=== PATIENT | female | born 2000 | race Caucasian/White ===

== ENCOUNTER 2021-11-20 16:45 | Emergency (ER) | payer OTHER ==
[~2021-11-20] VITALS: Ht 167.6 cm; Wt 78.9 kg
[2021-11-20 17:07] VITALS: BP 143/86
[2021-11-20 18:10] LABS: BASOPHILS # (AUTO) 0.1 K/uL (0.00-0.22); BASOPHILS % (AUTO) 0.8 % (0.0-2.0); EOSINOPHILS # (AUTO) 0.1 K/uL (0-0.4); EOSINOPHILS % (AUTO) 0.4 % (0.0-4.0); HEMATOCRIT 43.6 % (36-48); HEMOGLOBIN 14.5 g/dL (12.0-16.0); LYMPHOCYTES % (AUTO) 13.8 % (20.5-51.1); MEAN CORPUSCULAR HEMOGLOBIN 28 pg (27-31); MEAN CORPUSCULAR HGB CONC 33 g/dL (33-37); MEAN CORPUSCULAR VOLUME 83.1 fL (80-94); MONOCYTES % (AUTO) 7.3 % (1.7-9.3); NEUTROPHILS # (AUTO) 11.2 K/uL (1.8-7.7); NEUTROPHILS % (AUTO) 77.7 % (42.2-75.2); PLATELET COUNT (AUTO) 327 K/uL (140-450); RED BLOOD CELL COUNT(AUTO) 5.25 MIL/uL (4.20-5.40); RED CELL DISTRIBUTION WIDTH 13.2 % (11.6-13.7); WHITE BLOOD COUNT (AUTO) 14.4 K/uL (4.5-11.0)
--- NOTE | 2021-11-20 18:30 | NUR ---
Norma robison in EDM - 11/20/21 at 2002 by [facility] PATIENT ELOPED FROM FACILITY. DISCHARGE INSTRUCTIONS NOT GIVEN TO PATIENT. DR. PRADO NOTIFIED.
[2021-11-20 18:37] LABS: APPEARANCE,URINE CLEAR (CLEAR); BILIRUBIN,URINE NEGATIVE (NEGATIVE); BLOOD, URINE NEGATIVE (NEGATIVE); COLOR,URINE YELLOW (YELLOW); LEUKOCYTE ESTERASE ,URINE TRACE (NEGATIVE); NITRITE, URINE NEGATIVE (NEGATIVE); PH,URINE 7.5 (5.0-9.0); UGLUCOSE NEGATIVE (NEGATIVE)
[2021-11-20 18:39] LABS: ALBUMIN 4.1 g/dL (3.4-5.0); ANION GAP 15.1 (8-16); CHLORIDE 102 mmol/L (98-107); CREATININE 0.7 mg/dL (0.6-1.3); GFR ARICAN-AMERICAN 139 mL/min (>90); GLUCOSE 102 mg/dL (74-106); LIPASE 69 U/L (73-393); POTASSIUM 4.1 mmol/L (3.5-5.1); SODIUM SERUM 140 mmol/L (136-145); TOTAL BILIRUBIN 0.5 mg/dL (0.0-1.0); UREA NITROGEN, BLOOD 12 mg/dL (7-18)
[2021-11-20 19:13] LABS: RBC,URINE NONE SEEN /HPF (0-5)
[2021-11-20 19:14] LABS: TRICHOMONAS,URINE None Seen /HPF (None Seen); YEAST,URINE None Seen /HPF (None Seen)
[2021-11-20] MEDS ORDERED: KETOROLAC 15 MG/ML VIAL IM ONE (19:25)
[2021-11-20] MEDS ORDERED: KETOROLAC 15 MG/ML VIAL ONE (22:02)
[2021-11-20] MEDS ORDERED: CEPH-588 PO (22:53)
[2021-11-20] MEDS ORDERED: ONDA-188 SL (22:54)
[2021-11-20 23:31] VITALS: BP 143/86
--- NOTE | 2021-11-20 23:31 | NUR ---
Patient discharged with v/s stable. Written and verbal after care instructions given and explained. Patient alert, oriented and verbalized understanding of instructions. Ambulatory with steady gait. All questions addressed prior to discharge. ID band removed. Patient advised to follow up with PMD. Rx of KEFLEX AND ZOFRAN given. Patient educated on indication of medication including possible reaction and side effects. Opportunity to ask questions provided and answered.
[2021-11-24] MEDS ORDERED: ACET-1182 PO (09:47)
[2021-11-24] MEDS ORDERED: ACET-9525 PO (09:47)
== END 2021-11-20 23:31 | disposition home or self-care (01) ==
LOC: MED 16:45
DX: N39.0 Urinary tract infection, site not specified (principal); Z79.899 Other long term (current) drug therapy; Z79.2 Long term (current) use of antibiotics
CPT/HCPCS: 36415; 76705; 80053; 81001; 81025; 83690; 85025; 87086; 96372; 99284; J1885; Q0092

== ENCOUNTER 2021-12-01 09:49 | Emergency (ER) | payer OTHER ==
[~2021-12-01] VITALS: Ht 167.6 cm; Wt 79.4 kg
[~2021-12-01 09:49] MED LIST: ACET-1182 PO; ACET-9525 PO; ONDA-188 SL
--- NOTE | 2021-12-01 12:50 | NUR ---
ANIBAL VANG ATTEMPTED TO BRING PT BACK, NOT FOUND IN LOBBY/OUTSIDE
--- NOTE | 2021-12-01 13:45 | NUR ---
PT RETURNED, PT EVALUATED BY PA
--- NOTE | 2021-12-01 14:00 | NUR ---
PT DISCHARGED BY ANIBAL VANG.
== END 2021-12-01 14:00 | disposition home or self-care (01) ==
LOC: MED 09:49
DX: Z48.01 Encounter for change or removal of surgical wound dressing (principal); Z90.49 Acquired absence of other specified parts of digestive tract
CPT/HCPCS: 81002; 81025; 99282

== ENCOUNTER 2021-12-10 00:34 | Inpatient (IN) | payer OTHER ==
[~2021-12-10] VITALS: Ht 167.6 cm; Wt 73.5 kg
[2021-12-10 00:52] VITALS: BP 121/73
--- NOTE | 2021-12-10 00:58 | NUR ---
PT AMBULATED TO ED 11, REPORT GIVEN TO JAZMIN VELA, PT PROVIDED URINE SAMPLE.
--- NOTE | 2021-12-10 01:01 | NUR ---
Pt coming from home ambulatory with steady gait. Pt c/o fever, fatigue, and abdominal pain. Rates abdominal pain 10/10 non-radiating. Pt had Api surgery on November 22. Temp eleveated at 99.1 F and HR elevated at 130, other vitals stable. Pt is A&Ox4. Skin intact. Pt's skin pale. NKA. Bed in lowest position.
--- NOTE | 2021-12-10 01:05 | NUR ---
Dr. Rothman at bedside assessing pt.
--- NOTE | 2021-12-10 01:10 | NUR ---
22g IV placed on left AC using aseptic technique no infiltration noted. Blood drawn and sent to lab. Flushed IV with 10cc of NS.
--- NOTE | 2021-12-10 01:24 | NUR ---
Urine collected and sent to lab.
[2021-12-10] MEDS ORDERED: NACL 0.9% 2,000 ML IV ONE (01:25)
[2021-12-10] MEDS ORDERED: PIPERACILLIN/TAZOBACTAM 3.375 GM in DEXTROSE 5% 50 ML IV ONE (01:25)
[2021-12-10 01:29] LABS: BASOPHILS # (AUTO) 0.1 K/uL (0.00-0.22); BASOPHILS % (AUTO) 0.6 % (0.0-2.0); HEMATOCRIT 35.9 % (36-48); HEMOGLOBIN 12.2 g/dL (12.0-16.0); LYMPHOCYTES # (AUTO) 2.1 K/uL (2.5-16.5); LYMPHOCYTES % (AUTO) 12.6 % (20.5-51.1); MEAN CORPUSCULAR HEMOGLOBIN 28 pg (27-31); MEAN CORPUSCULAR HGB CONC 34 g/dL (33-37); MEAN CORPUSCULAR VOLUME 81.4 fL (80-94); MONOCYTES # (AUTO) 1.6 K/uL (0.8-1.0); MONOCYTES % (AUTO) 9.5 % (1.7-9.3); NEUTROPHILS # (AUTO) 13.2 K/uL (1.8-7.7); NEUTROPHILS % (AUTO) 77.3 % (42.2-75.2); PLATELET COUNT (AUTO) 429 K/uL (140-450); RED BLOOD CELL COUNT(AUTO) 4.41 MIL/uL (4.20-5.40); RED CELL DISTRIBUTION WIDTH 13.8 % (11.6-13.7)
--- NOTE | 2021-12-10 01:32 | NUR ---
Covid swab done and sent to lab.
[2021-12-10] MEDS ORDERED: PIPERACILLIN/TAZOBACTAM 3.375 GM VIAL IV ONE (01:35)
[2021-12-10 01:50] LABS: APPEARANCE,URINE CLEAR (CLEAR); BILIRUBIN,URINE NEGATIVE (NEGATIVE); BLOOD, URINE TRACE-I (NEGATIVE); COLOR,URINE YELLOW (YELLOW); LEUKOCYTE ESTERASE ,URINE TRACE (NEGATIVE); NITRITE, URINE NEGATIVE (NEGATIVE); UGLUCOSE NEGATIVE (NEGATIVE)
[2021-12-10 01:59] LABS: ALBUMIN 2.9 g/dL (3.4-5.0); ANION GAP 17.8 (8-16); CARBON DIOXIDE 23.9 mmol/L (21-32); CREATININE 0.8 mg/dL (0.6-1.3); POTASSIUM 3.7 mmol/L (3.5-5.1); TOTAL BILIRUBIN 0.8 mg/dL (0.0-1.0)
[2021-12-10 02:09] LABS: RBC,URINE 0-5 /HPF (0-5)
--- NOTE | 2021-12-10 02:36 | NUR ---
Pt to CT via wheelchair.
--- NOTE | 2021-12-10 02:41 | NUR ---
PT RETURNED FROM CT VIA W.C
[2021-12-10] MEDS ORDERED: MORPHINE SULFATE 4 MG/ML SYR IVP ONE (02:50)
--- NOTE | 2021-12-10 03:25 | NUR ---
Patient appears to be resting comfortably in bed. Vital Signs within normal limits. Respirations even and unlabored.
--- NOTE | 2021-12-10 05:57 | NUR ---
Personal Belonging List completed.
[2021-12-10] MEDS ORDERED: HYDROcodone/APAP 5/325 MG 1 TAB TAB PO PRN (07:15)
[2021-12-10] MEDS ORDERED: MORPHINE SULFATE 4 MG/ML SYR IVP PRN (07:15)
[2021-12-10] MEDS ORDERED: ACETAMINOPHEN 325 MG TAB PO PRN (07:15)
[2021-12-10] MEDS: NACL 0.9% 1,000 ML IV SCH ×2 (07:15→19:45)
[2021-12-10] MEDS ORDERED: MAGNESIUM OXIDE 400 MG TAB PO PRN (07:15)
[2021-12-10] MEDS ORDERED: POTASSIUM CHLORIDE 10 MEQ TABER PO PRN (07:15)
--- NOTE | 2021-12-10 08:00 | NUR ---
RECEIVED PT IN [facility] AOX4. C/O 05/05 ABDOMINAL PAIN AT THIS TIME BUT REFUSES PAIN MEDICATION. STACH ON MONITOR. IV INTACT AND PATENT INFUSING FLUIDS PER ORDER. PENDING MED SURG BED. NAD. SAFETY MAINTAINED
--- NOTE | 2021-12-10 09:00 | NUR ---
MEDICATED WITH HEPARIN SUBQ PER ORDER, UNABLE TO DOCUMENT ON EMAR
[2021-12-10] MEDS ORDERED: cefTRIAXone 1,000 MG VIAL ONE (09:48)
--- NOTE | 2021-12-10 11:14 | NUR ---
PT ASLEEP NO S/S PAIN OR DISCOMFORT. NAD. SAFETY MAINTAINED.
[2021-12-10] MEDS: metroNIDAZOLE 500 MG/NS PREMIX 100 ML IV SCH ×2 (13:00→20:59)
--- NOTE | 2021-12-10 16:46 | NUR ---
PT AMBULATES TO BATHROOM AND BACK TO [facility] NO CHANGES NOTED. SAFETY MAINTAINED
--- NOTE | 2021-12-10 17:59 | NUR ---
MOVED TO BED 7
--- NOTE | 2021-12-10 18:21 | NUR ---
PT RESTING IN [place] NO CHANGES NOTED. SAFETY MAINTAINED
--- NOTE | 2021-12-10 19:49 | NUR ---
Norma robison in [facility] - 12/10/21 at 1949 by CHRIS Report given to MIRIAN Donaldson for transfer of care.
--- NOTE | 2021-12-10 20:00 | NUR ---
REC'D PT FROM AM RN TO ASSUME PLAN OF CARE. PT'S A/OX4, DENIES PAIN, AMBULATORY WITH STEADY GAIT. STABLE VITAL SIGNS. POC DISCUSSED. WAITING FOR ROOM AVAILABILITY. M/S STATUS. PT ADMITTED FOR ABDOMINAL ABCESS. ON ATBX SAFETY CONTINUE. CONTINUE MONITOR.
[2021-12-11] MEDS: metroNIDAZOLE 500 MG/NS PREMIX 100 ML IV SCH ×3 (04:29→21:13)
--- NOTE | 2021-12-11 07:21 | NUR ---
ENDORSED PT TO RN MILY TO ASSUME PLAN OF CARE. A/OX4, BRP WITH STEADY GAIT, STABLE VITAL SIGNS. ON ROOM AIR SATS >95%
--- NOTE | 2021-12-11 07:22 | NUR ---
Recieved report from MIRIAN Donaldson for transfer of care
[2021-12-11 08:50] LABS: ANION GAP 16.4 (8-16); CARBON DIOXIDE 24.2 mmol/L (21-32); CREATININE 0.6 mg/dL (0.6-1.3); POTASSIUM 4.6 mmol/L (3.5-5.1)
[2021-12-11 09:03] LABS: BASOPHILS % (AUTO) 0.4 % (0.0-2.0); EOSINOPHILS # (AUTO) 0.2 K/uL (0-0.4); EOSINOPHILS % (AUTO) 2.3 % (0.0-4.0); HEMATOCRIT 31.3 % (36-48); HEMOGLOBIN 10.2 g/dL (12.0-16.0); LYMPHOCYTES # (AUTO) 2.1 K/uL (2.5-16.5); LYMPHOCYTES % (AUTO) 21.7 % (20.5-51.1); MEAN CORPUSCULAR HEMOGLOBIN 27 pg (27-31); MEAN CORPUSCULAR HGB CONC 33 g/dL (33-37); MEAN CORPUSCULAR VOLUME 83.6 fL (80-94); MONOCYTES # (AUTO) 1.1 K/uL (0.8-1.0); MONOCYTES % (AUTO) 11.3 % (1.7-9.3); NEUTROPHILS # (AUTO) 6.1 K/uL (1.8-7.7); NEUTROPHILS % (AUTO) 64.3 % (42.2-75.2); PLATELET COUNT (AUTO) 351 K/uL (140-450); RED BLOOD CELL COUNT(AUTO) 3.75 MIL/uL (4.20-5.40); RED CELL DISTRIBUTION WIDTH 13.6 % (11.6-13.7); WHITE BLOOD COUNT (AUTO) 9.5 K/uL (4.5-11.0)
[2021-12-11] MEDS ORDERED: cefTRIAXone 1,000 MG VIAL ONE (09:34)
[2021-12-11] MEDS: NACL 0.9% 1,000 ML IV SCH ×2 (09:34→20:45)
--- NOTE | 2021-12-11 09:44 | NUR ---
Dr. Colon, admitting doctor, evaluating patient at bedside.
--- NOTE | 2021-12-11 10:05 | NUR ---
Patient was offered a coloring book.
[2021-12-11 10:30] LABS: PROTHROMBIN TIME 10.8 secs (10.8-13.4)
--- NOTE | 2021-12-11 12:19 | NUR ---
Patient ambulated to restroom with steady gait.
--- NOTE | 2021-12-11 14:23 | NUR ---
Patient is laying in bed, respirations even and unlabored. All needs met by staff.
--- NOTE | 2021-12-11 16:18 | NUR ---
Paged Dr. Colon regarding patients diet orders. Recieved new orders for Regular Diet today and NPO after midnight. Orders carried out.
--- NOTE | 2021-12-11 16:21 | NUR ---
Patient was offered a sandwich and juice.
--- NOTE | 2021-12-11 18:16 | NUR ---
Patient was offered dinner tray.
--- NOTE | 2021-12-11 18:33 | NUR ---
Patient ambulated to restroom with steady gait.
--- NOTE | 2021-12-11 19:18 | NUR ---
Report given to JONAH Soliman for transfer of care.
--- NOTE | 2021-12-11 19:34 | NUR ---
Patient will be admitted to care of Dr. Colon. Admited to M/S. Will go to room 105B. Belongings list completed. Report to MIRIAN Mendez.
--- NOTE | 2021-12-11 19:35 | NUR ---
The patient's care was reviewed and supervised by Debra Jaramillo RN.
--- NOTE | 2021-12-11 22:51 | NUR ---
PATIENT AWAKE ALERT NO C/O OF ABDOMEN PAIN HAS SMALL DRSG AT LEFT LOWER QUAD SITE. DRY INTACT. PATIENT IS A MED/SURG PATIENT LUNGS CLEAR TEMP 98.8 PATIENT CAME HERE FROM [id number] [facility]. HUNG NS 80 HOUR. RECEIVED FLAGYL 500 MG IVPB. 2100. AND HEPARIN 5,000 UNITS S.Q. PATIENT NPO EXCEPT MEDS. HAD A APPY ON 11/22/21. PATIENT IS A M/S PATIENT. NO SIGNS OF DISTRESS.
[2021-12-12] VITALS: BP 108/77
[2021-12-12] MEDS: metroNIDAZOLE 500 MG/NS PREMIX 100 ML IV SCH ×3 (05:38→21:23)
[2021-12-12 07:15] LABS: BASOPHILS % (AUTO) 0.5 % (0.0-2.0); EOSINOPHILS # (AUTO) 0.3 K/uL (0-0.4); EOSINOPHILS % (AUTO) 3.8 % (0.0-4.0); HEMATOCRIT 31.3 % (36-48); HEMOGLOBIN 10.4 g/dL (12.0-16.0); LYMPHOCYTES # (AUTO) 2.6 K/uL (2.5-16.5); LYMPHOCYTES % (AUTO) 35.2 % (20.5-51.1); MEAN CORPUSCULAR HEMOGLOBIN 27 pg (27-31); MEAN CORPUSCULAR HGB CONC 33 g/dL (33-37); MEAN CORPUSCULAR VOLUME 82.5 fL (80-94); MONOCYTES # (AUTO) 0.9 K/uL (0.8-1.0); MONOCYTES % (AUTO) 11.7 % (1.7-9.3); NEUTROPHILS # (AUTO) 3.6 K/uL (1.8-7.7); NEUTROPHILS % (AUTO) 48.8 % (42.2-75.2); PLATELET COUNT (AUTO) 370 K/uL (140-450); RED CELL DISTRIBUTION WIDTH 13.9 % (11.6-13.7); WHITE BLOOD COUNT (AUTO) 7.3 K/uL (4.5-11.0)
[2021-12-12 07:38] LABS: ANION GAP 14.8 (8-16); CARBON DIOXIDE 25.7 mmol/L (21-32); CREATININE 0.7 mg/dL (0.6-1.3); POTASSIUM 3.5 mmol/L (3.5-5.1)
[2021-12-12 08:00] VITALS: BP 102/68
--- NOTE | 2021-12-12 08:00 | NUR ---
ASSESSMENT COMPLETED PLAN OF CARE REVIEWED NPO FOR PROCEDURE NO DISTRESS NOTED
[2021-12-12] MEDS: NACL 0.9% 1,000 ML IV SCH ×2 (09:18→21:45)
[2021-12-12] MEDS ORDERED: MIDAZOLAM 2 MG/2 ML VIAL ONE (10:02)
[2021-12-12] MEDS ORDERED: LIDOCAINE 1% 500 MG/50 ML VIAL ONE (10:03)
[2021-12-12] MEDS ORDERED: fentaNYL citrate 0.05 MG/ML VIAL ONE (10:03)
--- NOTE | 2021-12-12 11:07 | NUR ---
PATIENT HAS BEEN SCREENED AND CATEGORIZED LOW NUTRITION RISK. PATIENT WILL BE SEEN WITHIN 7 DAYS OF ADMISSION. 12/17/[address] REVIEWED BY ROHAN LONG RD
--- NOTE | 2021-12-12 14:30 | NUR ---
DC PLANNING SW MET WITH PT AT BEDSIDE TO COMPLETE ASSESSMENT. PTS BOYFRIEND, JESSIKA AT BEDSIDE,PT PROVIDED PERMISSION FOR PARTNER TO STAY IN ROOM. PATIENT IS PRIMARILY WOLOF SPEAKING, SW TO UTILIZE VALIDATION SPECIALIST HOWEVER, PT REQUESTED THAT HER PARTNER, INTERPRET INSTEAD. PATIENT REPORTS RESIDING IN A SINGLE STORY HOME WITH HER FAMILY AT THE ADDRESS LISTED ON FILE. PATIENT IDENTIFIED RADHA MELISSA, BROTHER, EMERGENCY CONTACT. PATIENT REPORTS MEETING WITH PCP NEEDED, LAST VISIT; . SW SPOKE TO PT ABOUT THE IMPORTANCE OF F/UP CARE. PATIENT RECEPTIVE AND PROVIDED SW WITH PERMISSION TO SCHEDULE FOLLOW UP APPT, WHEN CLEARED FOR DC. PATIENT DENIES TAKING MEDICATION AT THIS TIME AND DENIES BARRIERS IN ACCESS TO MEDICATION, IF REQUIRED. PATIENT REPORTS RECEIVING MEDICATION FROM [facility] [place], WHEN NEEDED. PATIENT REPORTS BEING INDEPENDENT IN ALL ACTIVITIES AND DENIES USE OF DME. PATIENT REPORTS ADEQUATE FOOD SOURCES AT HOME. PATIENT REPORTS ADEQUATE FRIEND AND FAMILY SUPPORT. PT DENIES MH/SA HX. PATIENT REPORTS DC PLAN IS TO RETURN HOME, WITH FAMILY PROVIDING TRANSPORTATION WHEN MEDICALLY STABLE Addendum: 12/13/21 at 1540 by Juan Diego VENTURA BOB OUTREACHED TO PATIENTS PCP OFFICE AT [phone]. SPOKE WITH DONITA, WHO REPORTS THAT HOSPITAL DC APPTS ARE ONLY DONE ON STANDBY. PATIENT MUST ARRIVE TO OFFICE AT 1:30 AND WILL BE CALLED FROM 1:30-4:30PM DEPENDING ON CANCELLATIONS. STANDBY AP[facility] [place] EXPLAINED STANDBY TO PATIENT. APPT DETAILS PROVIDED TO PATIENT AND PARTNER THAT INCLUDED; DATE, TIME, ADDRESS, PHONE NUMBER. PATIENT ACCEPTED.
[2021-12-12 16:00] VITALS: BP 103/70
--- NOTE | 2021-12-12 17:00 | NUR ---
DR BELCHER MADE AWRE PT NAUSEATED WITH NEW ORDER FOR ZOFRAN NOTED AND CARRIED OUT
[2021-12-12] MEDS: ONDANSETRON 4 MG/2 ML VIAL IVP PRN (17:52)
--- NOTE | 2021-12-12 18:03 | NUR ---
DR PHIPPS PAGED REGARDEING FULL LIQUID DIET ROUNDED ON PATIENT AND NOTED HE WOULD START FULL LIQUID DIET ME=D MADE AWARE PT ONLY HAS AN OLD REGULAR DIET ORDERED AWAITING RESPONSE FROM PT MEDICATED WITH ZOFRAN ORDERED
--- NOTE | 2021-12-12 19:30 | NUR ---
RECEIVED ENDORSEMENT FROM DAY SHIFT NURSE FOR CONTINUITY OF CARE. PT IS ON BED, AWAKE, ALERT AND VERBALLY RESPONSIVE. PT CURRENTLY ON FULL LIQUID DIET. IV SALINE LOCK ON LEFT FOREARM 22G INTACT AND PATENT, [id number] SALINE INFUSING WELL AT 80ML. PT VERBALIZED OF ON & OFF VERY MILD PAIN ON ABDOMEN AREA, PAIN IS TOLERABLE, PT STATED NO NEED OF PAIN PILL. CONTINUE MONITORING.
--- NOTE | 2021-12-12 21:00 | NUR ---
PT IS AWAKE ON BED AND PLAYING WITH HER CELL PHONE. PT DENIES OF [PAIN OR DISCOMFORT. NO HEADACHE OR DIZZINESS. NO SOB OR DISTRESS.
--- NOTE | 2021-12-12 23:00 | NUR ---
PT ASLEEP. NO FACIAL GRIMACING. NO SOB OR DISTRESS.
[2021-12-13] MEDS: metroNIDAZOLE 500 MG/NS PREMIX 100 ML IV SCH (05:13)
--- NOTE | 2021-12-13 05:15 | NUR ---
ANTIBIOTIC VIA IV ADMINISTERED, PT IS ON STABLE CONDITION. MILD AND BEARABLE PAIN ON ABDOMINAL AREA IS TOLERATED. PATIENT STATED FEEL COMFORTABLE TIME.
[2021-12-13 07:03] LABS: ANION GAP 13.1 (8-16); CARBON DIOXIDE 27.1 mmol/L (21-32); CREATININE 0.6 mg/dL (0.6-1.3); POTASSIUM 4.2 mmol/L (3.5-5.1)
[2021-12-13 07:09] LABS: BASOPHILS # (AUTO) 0.1 K/uL (0.00-0.22); BASOPHILS % (AUTO) 0.8 % (0.0-2.0); EOSINOPHILS # (AUTO) 0.3 K/uL (0-0.4); EOSINOPHILS % (AUTO) 4.2 % (0.0-4.0); HEMATOCRIT 30.5 % (36-48); HEMOGLOBIN 10.3 g/dL (12.0-16.0); LYMPHOCYTES # (AUTO) 2.7 K/uL (2.5-16.5); LYMPHOCYTES % (AUTO) 37.5 % (20.5-51.1); MEAN CORPUSCULAR HEMOGLOBIN 28 pg (27-31); MEAN CORPUSCULAR HGB CONC 34 g/dL (33-37); MEAN CORPUSCULAR VOLUME 82.1 fL (80-94); MONOCYTES # (AUTO) 0.8 K/uL (0.8-1.0); MONOCYTES % (AUTO) 11.5 % (1.7-9.3); NEUTROPHILS # (AUTO) 3.3 K/uL (1.8-7.7); PLATELET COUNT (AUTO) 361 K/uL (140-450); RED BLOOD CELL COUNT(AUTO) 3.72 MIL/uL (4.20-5.40); RED CELL DISTRIBUTION WIDTH 13.7 % (11.6-13.7); WHITE BLOOD COUNT (AUTO) 7.2 K/uL (4.5-11.0)
[2021-12-13] MEDS ORDERED: CIPR500T4 PO (08:27)
[2021-12-13] MEDS ORDERED: METR-435 PO (08:27)
--- NOTE | 2021-12-13 09:00 | NUR ---
ASSESSMENT COMPLETED PLAN OF CARE REVIEWED NO DISTRESS NOTED COMPLAINS OF NAUSEA NO VOMITTING WILL MEDICATE ORDERED PT MADE AWARE OF DISCHARGE TODAY
[2021-12-13] MEDS: ONDANSETRON 4 MG/2 ML VIAL IVP PRN (09:47)
[2021-12-13] MEDS: NACL 0.9% 1,000 ML IV SCH (10:15)
--- NOTE | 2021-12-13 10:54 | NUR ---
DISCHARGE INSTRUCTIONS GIVEN PT VERBALIZED UNDERSTANDING OF FOLLOW UP APPOINTMENT AND MADE AWARE OF RX AT [facility] PT IV DISCONTINUED AWAITING RIDE AT THIS TIME
--- NOTE | 2021-12-13 11:50 | NUR ---
PT CALLED [facility] ASSISTED TO FRONT LOBBY VIA WHEELCHAIR NO DISTRESS NOTED
== END 2021-12-13 11:40 | disposition home or self-care (01) | DRG 721 ==
LOC: MED 00:34 → MTU 07:15
PROVIDERS: ADMIT Student in an Organized Health Care Education/Training Program; ATTEND Student in an Organized Health Care Education/Training Program
DX: T81.43XA Infection following a procedure, organ and space surgical site, initial encounter (principal); K65.1 Peritoneal abscess; E44.1 Mild protein-calorie malnutrition; A41.9 Sepsis, unspecified organism; E86.1 Hypovolemia; Z20.822 Contact with and (suspected) exposure to COVID-19; Y83.8 Other surgical procedures as the cause of abnormal reaction of the patient, or of later complication, without mention of misadventure at the time of the procedure; Y92.89 Other specified places as the place of occurrence of the external cause; Z68.26 Body mass index [BMI] 26.0-26.9, adult
CPT/HCPCS: 36415; 75989; 80048; 80053; 81001; 81025; 83605; 85025; 85610; 85730; 87040; 87081; 87086; 96365; 96375; 99285; J0696; J1644; J2001; J2250; J2270; J2405; J2543; J3010; J3490; J7060; Q9967